=== PATIENT | male | born 1980 | race Caucasian/White ===

== ENCOUNTER 2025-06-25 10:47 | Emergency (ER) | payer BC | END 2025-06-25 11:34 | disposition home or self-care (01) | LOC: MW.ED 10:47 | DX: L03.116 Cellulitis of left lower limb (principal); Z88.0 Allergy status to penicillin; Z88.8 Allergy status to other drugs, medicaments and biological substances | CPT/HCPCS: 99283; A9270 ==

== ENCOUNTER 2025-07-23 18:47 | Emergency (ER) | payer SELFPAY ==
[2025-07-23] MEDS: Lidocaine 1% with EPINEPHrine 1:200,000 30 ML SDV INJECT ONE (19:38)
== END 2025-07-23 20:29 | disposition home or self-care (01) ==
LOC: MW.ED 18:47
DX: L02.416 Cutaneous abscess of left lower limb (principal); I10 Essential (primary) hypertension; E11.9 Type 2 diabetes mellitus without complications; Z88.1 Allergy status to other antibiotic agents; Z88.8 Allergy status to other drugs, medicaments and biological substances; Z88.0 Allergy status to penicillin; Z75.3 Unavailability and inaccessibility of health-care facilities
CPT/HCPCS: 10060; 99283; A9270; J2004; 10061; 99284

== ENCOUNTER 2025-07-29 23:22 | Emergency (ER) | payer SELFPAY ==
[2025-07-29 23:46] LABS: APPEARANCE,URINE CLEAR; GLUCOSE,URINE >=1000 mg/dL (NEGATIVE); OCCULT BLOOD,URINE NEGATIVE (NEGATIVE)
== END 2025-07-30 00:23 | disposition home or self-care (01) ==
LOC: MW.ED 23:22
DX: N48.1 Balanitis (principal); I10 Essential (primary) hypertension; E11.9 Type 2 diabetes mellitus without complications; Z88.0 Allergy status to penicillin; Z79.899 Other long term (current) drug therapy; Z91.148 Patient's other noncompliance with medication regimen for other reason
CPT/HCPCS: 81003; 99283